=== PATIENT | female | born 1975 | race Caucasian/White ===

== ENCOUNTER 2017-03-16 10:04 | Day surgery (SDC) | payer OTHER ==
[~2017-03-16] VITALS: Ht 172.7 cm; Wt 97.6 kg
[2017-03-16] VITALS (8 sets, daily range): BP systolic 113–124; BP diastolic 62–75; PULSE 64–105; TEMP 97.9–98.2
[2017-03-16] MEDS ORDERED: ZOCOR 20MG20 MG PO (11:29)
[2017-03-16] MEDS ORDERED: ZOLOFT 25MG25 MG PO (11:29)
[2017-03-16] MEDS ORDERED: ASPIRIN E.C. 8181 MG PO (11:30)
[2017-03-16] MEDS ORDERED: FLAX OIL1000 MG PO (11:30)
[2017-03-16] MEDS ORDERED: FISH OIL 1000MG1 CAP PO (11:31)
[2017-03-16] MEDS ORDERED: NORCO 325 MG-7.1 TAB PO (17:13)
== END 2017-03-16 19:42 | disposition home or self-care (01) ==
LOC: SDCO 10:04
DX: K43.9 Ventral hernia without obstruction or gangrene (principal); K42.9 Umbilical hernia without obstruction or gangrene; Z86.718 Personal history of other venous thrombosis and embolism
CPT/HCPCS: C1713; C1781; J0690; J1100; J1170; J2270; J2405; J2550; J2704; J3010; J7120